=== PATIENT | female | born 1980 | race Caucasian/White ===

== ENCOUNTER 2019-10-19 11:17 | Emergency (ER) | payer MEDICAID ==
[~2019-10-19] VITALS: Ht 162.6 cm; Wt 83.9 kg
[2019-10-19 11:20] VITALS: Ht 162.6 cm; Wt 83.9 kg
[2019-10-19] MEDS ORDERED: GEODON80 MG PO (11:22)
[2019-10-19] MEDS ORDERED: ZOLOFT100 MG PO (11:23)
[2019-10-19] MEDS ORDERED: TOPROL XL25 MG PO (11:23)
[2019-10-19] MEDS ORDERED: OMEPRAZOLE20 M1 PO (11:23)
[2019-10-19] MEDS ORDERED: FLUTICASONE PRO16 GM (11:23)
[2019-10-19] MEDS ORDERED: ESTRACE2 MG PO (11:23)
[2019-10-19 11:54] LABS: BASOPHILS 0.4 % (0-2); HEMATOCRIT 44.8 % (36.0-48.0); HEMOGLOBIN 15.2 g/dL (12-16); IMMATURE GRANULOCYTES 0.5 % (0-5); LYMPHOCYTES 23.9 % (15-50); MCH 29.9 pg (26.0-34.0); MCHC 33.9 g/dL (31.0-37.0); MCV 88.2 fL (80.0-100.0); MEAN PLATELET VOLUME 9.3 fL (7.4-10.4); MONOCYTES 7.2 % (2-11); PLATELET COUNT 252 10x3/uL (130-400); RBC 5.08 10x6/uL (4.00-5.40); RDW 12.1 % (11.5-14.5); WBC 12.4 10x3/uL (4.8-10.8)
[2019-10-19 12:05] LABS: CALCIUM 9.6 mg/dL (8.5-10.1); CARBON DIOXIDE 24.8 mmol/L (21.0-32.0); CREATININE - SERUM 1.1 mg/dL (0.6-1.3); POTASSIUM - SERUM 3.8 mmol/L (3.5-5.1)
[2019-10-19 12:11] LABS: BILIRUBIN - TOTAL 0.94 mg/dL (0.2-1.3); MAGNESIUM - SERUM 2.1 mg/dL (1.8-2.4); PROTEIN - SERUM 7.6 g/dL (6.4-8.2)
[2019-10-19 12:25] LABS: BILIRUBIN NEGATIVE (NEGATIVE); KETONE NEGATIVE (NEGATIVE); NITRITE NEGATIVE (NEGATIVE); UROBILINOGEN NORMAL mg/dL (< 2)
[2019-10-19 12:32] LABS: UDS - AMPHET NEGATIVE QUAL (NEGATIVE); UDS - BARB NEGATIVE QUAL (NEGATIVE); UDS - BENZO NEGATIVE QUAL (NEGATIVE); UDS - COCAINE NEGATIVE QUAL (NEGATIVE); UDS - OPIATE NEGATIVE QUAL (NEGATIVE); UDS - PCP NEGATIVE QUAL (NEGATIVE); UDS - THC POSITIVE QUAL (NEGATIVE)
[2019-10-19] MEDS ORDERED: ZOFRAN ODT4 MG/UDTAB PO (13:45)
[2019-10-19 15:05] VITALS: BP 123/76
== END 2019-10-19 15:05 | disposition home or self-care (01) ==
LOC: D.ER 11:17
PROVIDERS: Family Medicine
DX: E86.0 Dehydration (principal); E87.1 Hypo-osmolality and hyponatremia; D72.829 Elevated white blood cell count, unspecified; T43.595A Adverse effect of other antipsychotics and neuroleptics, initial encounter; R53.1 Weakness; R25.1 Tremor, unspecified